=== PATIENT | female | born 1935 | race Caucasian/White ===

== ENCOUNTER 2017-11-18 12:17 | Inpatient (IN) | payer MEDICARE, OTHER ==
[~2017-11-18] VITALS: Ht 154.9 cm; Wt 49.4 kg
[~2017-11-18 12:17] MED LIST: ANTIDIARRHEAL2 MG PO; ATACAND16 MG PO; BISOPROLOL FUMAR5 MG PO; CITRACAL + D C1 EACH PO; DAILY VALUE1 EACH PO; LORTAB 7.5-5001 EACH PO; NEXIUM40 MG PO; TRAMADOL-ACETAMI1 EA PO; VITAMIN D22000 UNIT PO
[2017-11-18] MEDS ORDERED: ONDANSETRON HCL INJ 2 MG/ML VIAL IV SCH ×2 (12:59→16:45)
[2017-11-18] MEDS ORDERED: SODIUM CHLORIDE 0.9% 1000ML 1,000 ML IV STA (12:59)
[2017-11-18] MEDS ORDERED: METRONIDAZOLE 500MG/NS 100ML 100 ML IV STA (12:59)
[2017-11-18] MEDS ORDERED: PANTOPRAZOLE 40 MG 10ML VIAL IV SCH (12:59)
[2017-11-18] MEDS ORDERED: CIPROFLOXACIN 400 MG/D5W 200ML 200 ML IV ONE (13:00)
[2017-11-18] MEDS ORDERED: FENTANYL CITRATE/PF 100MCG/2 ML INJ IV ONE (13:00)
[2017-11-18] MEDS ORDERED: DIATRIZOATE MEGL/DIATRIZOA SOD 30 ML BTL PO ONE (13:16)
[2017-11-18 14:54] LABS: BASOPHILS # (AUTO) 0.1 (0.0-0.1); BASOPHILS % 0.5 % (0.0-1.0); EOSINOPHILS # (AUTO) 0.3 (0.0-0.4); EOSINOPHILS % 3.1 % (0.0-6.0); HEMATOCRIT 39.2 % (34.2-44.1); HEMOGLOBIN 12.9 g/dL (12.0-16.0); LYMPHOCYTES # (AUTO) 2.8 (1.0-3.2); MEAN CORPUSCULAR HEMOGLOBIN 28.9 pg (28-32); MEAN CORPUSCULAR HGB CONC 32.9 g/dL (31-35); MEAN CORPUSCULAR VOLUME 87.9 fL (81-99); MONOCYTES # (AUTO) 0.7 (0.2-0.8); MONOCYTES % 6.7 % (4.4-11.3); NEUTROPHILS # (AUTO) 6.9 (2.1-6.9); NEUTROPHILS % 63.5 % (38.7-80.0); PLATELET COUNT 259 x10e3/uL (140-360); RED BLOOD COUNT 4.46 x10e6/uL (3.6-5.1); RED CELL DISTRIBUTION WIDTH 14.9 % (11.7-14.4)
--- NOTE | 2017-11-18 15:01 | Diagnostic Imaging Report ---
EXAMINATION: CHEST SINGLE (PORTABLE) INDICATION: Bleeding from the rear COMPARISON: None FINDINGS: AP view TUBES and LINES: Left-sided ASCVD with 2 leads. LUNGS: Lungs are well inflated. Mild clearing of the lung parenchyma, likely emphysematous changes. Lungs are clear. There is no evidence of pneumonia or pulmonary edema. PLEURA: No pleural effusion or pneumothorax. HEART AND MEDIASTINUM: The cardiomediastinal silhouette is unremarkable. BONES AND SOFT TISSUES: No acute osseous lesion. Soft tissues are unremarkable. UPPER ABDOMEN: No free air under the diaphragm. Surgical clips in the right upper quadrant abdomen. IMPRESSION: No acute thoracic abnormality. Signed by: Dr. Tang Ward M.D. on 11/18/2017 2:57 PM
[2017-11-18 15:04] LABS: INR 1.01; PROTHROMBIN TIME 12.5 seconds (11.9-14.5)
[2017-11-18 15:13] LABS: ALANINE AMINOTRANSFERASE 19 IU/L (0-55); ALBUMIN 3.7 g/dL (3.5-5.0); ALBUMIN/GLOBULIN RATIO 1.2 (0.8-2.0); ALKALINE PHOSPHATASE 70 IU/L (40-150); ANION GAP 12.5 mmol/L (8-16); BLOOD UREA NITROGEN 19 mg/dL (7-26); BUN/CREATININE RATIO 20 (6-25); CALCIUM 10.1 mg/dL (8.4-10.2); CARBON DIOXIDE 31 mmol/L (22-29); CHLORIDE 101 mmol/L (98-107); CREATINE KINASE 122 IU/L (29-168); CREATININE, SERUM 0.97 mg/dL (0.57-1.11); EST GLOMERULAR FILTRATION RATE 55 ML/MIN (60-); GLUCOSE 103 mg/dL (74-118); LIPASE 14 U/L (8-78); MAGNESIUM 1.5 MG/DL (1.3-2.1); POTASSIUM 3.5 mmol/L (3.5-5.1); SODIUM 141 mmol/L (136-145)
[2017-11-18 15:33] LABS: THYROID STIMULATING HORMONE 2.306 uIU/mL (0.350-4.940)
[2017-11-18] MEDS: SODIUM CHLORIDE 0.9% 1000ML 1,000 ML IV SCH ×2 (16:00→23:04)
--- NOTE | 2017-11-18 16:24 | Diagnostic Imaging Report ---
EXAM: CT Abdomen and Pelvis WITH contrast INDICATION: \S\pain, rectal bleeding\S\Y COMPARISON: None. TECHNIQUE: Abdomen and pelvis were scanned utilizing a multidetector helical scanner from the lung base to the pubic symphysis after administration of IV contrast. Coronal and sagittal reformations were obtained. Routine protocol was performed. Scan was performed when during portal venous phase. IV CONTRAST: 100 mL of Isovue 370 ORAL CONTRAST: Gastrografin COMPLICATIONS: None RADIATION DOSE: Total DLP: 193.29 mGy*cm Estimated effective dose: (DLP x 0.015 x size factor) mSv CTDIvol has been reviewed. It is below the limits set by the Radiation Protocol Committee (RPC). FINDINGS: LINES and TUBES: None. LOWER THORAX: Unremarkable HEPATOBILIARY: No focal hepatic lesions. There is intra- and extra- hepatic biliary dilation likely post cholecystectomy resevoir effect. Common bile duct measures 0.8 cm. GALLBLADDER: There are cholecystectomy clips. SPLEEN: No splenomegaly. PANCREAS: No focal masses or ductal dilatation. ADRENALS: No adrenal nodules KIDNEYS/URETERS: Kidneys enhance symmetrically. No hydronephrosis. No cystic or solid mass lesions. No stones. GI TRACT: No abnormal distention, wall thickening, or evidence of bowel obstruction. Large amount of stool in the rectal lobe. There are diverticula within the colon without evidence of diverticulitis. Appendix is not clearly identified. There is however no fat stranding or adenopathy in the right lower quadrant to suggest appendicitis. PELVIC ORGANS/BLADDER: Unremarkable. LYMPH NODES: No lymphadenopathy. VESSELS: Unremarkable. PERITONEUM / RETROPERITONEUM: No free air or fluid. BONES: There are degenerative changes in the lumbar spine. Grade 1 anterolisthesis of L4 on L5. Moderate disc space narrowing at L1-L2. SOFT TISSUES: Unremarkable. IMPRESSION: 1. Large amount of stool in the rectal vault. 2. Colonic diverticula without evidence of diverticulitis. No bowel obstruction. Signed by: Dr. Tang Ward M.D. on 11/18/2017 4:20 PM
[2017-11-18] MEDS: METRONIDAZOLE 500MG/NS 100ML 100 ML IV SCH ×2 (16:26→23:58)
--- OUTSIDE RECORDS SUMMARY | 2017-11-18 16:36 | XMS REPORT ---
Author Author [facility] Address Unknown Phone Unavailable Care Team Providers Care Titrator Name Role Phone XIANG HU Unavailable Unavailable Problems This patient has no known problems. Allergies, Adverse Reactions, Alerts This patient has no known allergies or adverse reactions. Medications This patient has no known medications. Results Test Description Test Time Test Comments Text Results Atomic Results Result Comments CHEST SINGLE (PORTABLE) [facility] [address] [address] Patient Name: ADEN TORRES MR #: [id number] : 1935 Age/Sex: 82/F Req #: [id number] Adm Physician: Ordered by: XIANG HU MD, MD Report #: [id number] Location: ER Room/Bed: Procedure: [id number] DX/CHEST SINGLE (PORTABLE) Exam Date: 11/18/17 Exam Time: 1440 REPORT STATUS: Signed EXAMINATION : CHEST SINGLE (PORTABLE) INDICATION: Bleeding from the rear COMPARISON: None FINDINGS: AP view TUBES and LINES: Left- sided ASCVD with 2 leads. LUNGS: Lungs are well inflated. Mild clearing of the lung parenchyma, likely emphysematous changes. Lungs are clear. There is no evidence of pneumonia or pulmonary edema. PLEURA: No pleural effusion or pneumothorax. HEART AND MEDIASTINUM: The cardiomediastinal silhouette is unremarkable. BONES AND SOFT TISSUES: No acute osseous lesion. Soft tissues are unremarkable. UPPER ABDOMEN: No free air under the diaphragm. Surgical clips in the right upper quadrant abdomen. IMPRESSION: No acute thoracic abnormality. Signed by: Dr. Yazmin Ward M.D. on 11/18/2017 2:57 PM Dictated By: YAZMIN WARD MD 56 Transcribed By: MOIRA on 11/18/171456 COPY TO: XIANG HU CT ABDOMEN/PELVIS W [address] [place] [address] Patient Name: ADEN TORRES MR #: [id number] : 1935 Age/Sex: 82/F Req #: [id number] Adm Physician: Ordered by: XIANG HU MD, MD Report #: [id number] Location: ER Room/Bed: Procedure: [id number] CT/CT ABDOMEN/PELVIS W Exam Date: 11/18/17 Exam Time: 1530 REPORT STATUS: Signed EXAM: CT Abdomen and Pelvis WITH contrast INDICATION: S pain, rectal bleeding S Y COMPARISON: None. TECHNIQUE: Abdomen and pelvis were scanned utilizing a multidetector helical scanner from the lung base to the pubic symphysis after administration of IV contrast. Coronal and sagittal reformations were obtained. Routine protocol was performed. Scan was performed when during portal venous phase. IV CONTRAST: 100 mL of Isovue 370 ORAL CONTRAST: Gastrografin COMPLICATIONS: None RADIATION DOSE: Total DLP: 193.29 mGy*cm Estimated effective dose: (DLP x 0.015 x size factor) mSv CTDIvol has been reviewed. It is below the limits set by the Radiation Protocol Committee (RPC). FINDINGS: LINES and TUBES: None. LOWER THORAX: Unremarkable HEPATOBILIARY: No focal hepatic lesions. There is intra- and extra- hepatic biliary dilation likely post cholecystectomy resevoir effect. Common bile duct measures 0.8 cm. GALLBLADDER: There are cholecystectomy clips. SPLEEN: No splenomegaly. PANCREAS: No focal masses or ductal dilatation. ADRENALS: No adrenal nodules KIDNEYS/URETERS: Kidneys enhance symmetrically. No hydronephrosis. No cystic or solid mass lesions. No stones. GI TRACT: No abnormal distention, wall thickening, or evidence of bowel obstruction. Large amount of stool in the rectal lobe. There are diverticula within the colon without evidence of diverticulitis. Appendix is not clearly identified. There is however no fat stranding or adenopathy in the right lower quadrant to suggest appendicitis. PELVIC ORGANS/BLADDER: Unremarkable. LYMPH NODES: No lymphadenopathy. VESSELS: Unremarkable. PERITONEUM / RETROPERITONEUM: No free air or fluid. BONES: There are degenerative changes in the lumbar spine. Grade 1 anterolisthesis of L4 on L5. Moderate disc space narrowing at L1-L2. SOFT TISSUES: Unremarkable. IMPRESSION: 1. Large amount of stool in the rectal vault. 2. Colonic diverticula without evidence of diverticulitis. No bowel obstruction. Signed by: Dr. Yazmin Ward M.D. on 4:20 PM Dictated By: YAZMIN WARD MD 1620 Transcribed By: MOIRA on 11/18/17 1620 COPY TO : XIANG HU
[2017-11-18] MEDS ORDERED: FENTANYL CITRATE/PF 100MCG/2 ML INJ IV SCH (16:45)
[2017-11-18] MEDS: CIPROFLOXACIN 400 MG/D5W 200ML 200 ML IV SCH (17:00)
[2017-11-18 18:21] VITALS: BP 172/85
[2017-11-18 19:08] VITALS: BP 172/85
[2017-11-18 20:00] VITALS: BP 175/83
[2017-11-18 21:10] VITALS: BP 175/83
[2017-11-18] MEDS ORDERED: PEG (High)/E-LYTE SOLN 4,000 ML BTL PO ONE (23:30)
[2017-11-19] VITALS (7 sets, daily range): BP systolic 127–183; BP diastolic 56–81
[2017-11-19 00:49] LABS: HEMATOCRIT 35.6 % (34.2-44.1); HEMOGLOBIN 11.9 g/dL (12.0-16.0)
[2017-11-19] MEDS: CIPROFLOXACIN 400 MG/D5W 200ML 200 ML IV SCH ×2 (02:00→13:32)
[2017-11-19] MEDS: MORPHINE SULFATE 2 MG/ML SYR IV PRN (03:20)
[2017-11-19] MEDS: METRONIDAZOLE 500MG/NS 100ML 100 ML IV SCH ×4 (06:01→20:57)
[2017-11-19 06:57] LABS: HEMATOCRIT 34.7 % (34.2-44.1); HEMOGLOBIN 11.6 g/dL (12.0-16.0)
[2017-11-19 07:38] LABS: ALANINE AMINOTRANSFERASE 46 IU/L (0-55); ALBUMIN 3.1 g/dL (3.5-5.0); ALBUMIN/GLOBULIN RATIO 1.2 (0.8-2.0); ALKALINE PHOSPHATASE 117 IU/L (40-150); ANION GAP 13.2 mmol/L (8-16); BLOOD UREA NITROGEN 12 mg/dL (7-26); BUN/CREATININE RATIO 15 (6-25); CALCIUM 8.6 mg/dL (8.4-10.2); CARBON DIOXIDE 25 mmol/L (22-29); CHLORIDE 104 mmol/L (98-107); EST GLOMERULAR FILTRATION RATE > 60 ML/MIN (60-); GLUCOSE 124 mg/dL (74-118); POTASSIUM 3.2 mmol/L (3.5-5.1); SODIUM 139 mmol/L (136-145)
[2017-11-19] MEDS ORDERED: PANTOPRAZOLE 40 MG 10ML VIAL IV SCH (09:00)
[2017-11-19] MEDS: SODIUM CHLORIDE 0.9% 1000ML 1,000 ML IV SCH (09:21)
[2017-11-19] MEDS ORDERED: CITRATE OF MAGNESIA 300ML BOTTLE PO SCH ×2 (09:45→12:00)
[2017-11-19] MEDS ORDERED: POTASSIUM CHLORIDE 20MEQ/100ML 300 ML IV ONE (12:00)
[2017-11-19] MEDS: POTASSIUM CHLORIDE 20MEQ/100ML 100 ML IV SCH ×3 (13:10→17:41)
[2017-11-20] VITALS (7 sets, daily range): BP systolic 134–183; BP diastolic 59–83
[2017-11-20] MEDS: SODIUM CHLORIDE 0.9% 1000ML 1,000 ML IV SCH ×3 (00:15→18:01)
[2017-11-20] MEDS: CIPROFLOXACIN 400 MG/D5W 200ML 200 ML IV SCH (01:15)
[2017-11-20] MEDS: METRONIDAZOLE 500MG/NS 100ML 100 ML IV SCH ×3 (05:06→22:19)
[2017-11-20] MEDS ORDERED: CIPROFLOXACIN 400 MG/D5W 200ML 200 ML IV SCH (06:30)
[2017-11-20 07:20] LABS: BASOPHILS % 0.6 % (0.0-1.0); EOSINOPHILS # (AUTO) 0.3 (0.0-0.4); HEMATOCRIT 32.5 % (34.2-44.1); HEMOGLOBIN 10.8 g/dL (12.0-16.0); LYMPHOCYTES % 31.7 % (18.0-39.1); MEAN CORPUSCULAR HEMOGLOBIN 29.7 pg (28-32); MEAN CORPUSCULAR HGB CONC 33.2 g/dL (31-35); MEAN CORPUSCULAR VOLUME 89.3 fL (81-99); MONOCYTES # (AUTO) 0.5 (0.2-0.8); MONOCYTES % 7.7 % (4.4-11.3); NEUTROPHILS # (AUTO) 3.5 (2.1-6.9); NEUTROPHILS % 55.8 % (38.7-80.0); PLATELET COUNT 162 x10e3/uL (140-360); RED BLOOD COUNT 3.64 x10e6/uL (3.6-5.1); RED CELL DISTRIBUTION WIDTH 14.9 % (11.7-14.4)
[2017-11-20 07:31] LABS: ALBUMIN 2.8 g/dL (3.5-5.0); BILIRUBIN,DIRECT 0.4 mg/dL (0.0-0.5)
[2017-11-20] MEDS: HYDRALAZINE HCL 20 MG/ML VIAL IV PRN ×2 (07:44→23:06)
[2017-11-20 07:52] LABS: ANION GAP 12.3 mmol/L (8-16); BLOOD UREA NITROGEN 8 mg/dL (7-26); BUN/CREATININE RATIO 10 (6-25); CALCIUM 8.5 mg/dL (8.4-10.2); CARBON DIOXIDE 21 mmol/L (22-29); CHLORIDE 111 mmol/L (98-107); CREATININE, SERUM 0.78 mg/dL (0.57-1.11); EST GLOMERULAR FILTRATION RATE > 60 ML/MIN (60-); GLUCOSE 100 mg/dL (74-118); MAGNESIUM 1.7 MG/DL (1.3-2.1); POTASSIUM 3.3 mmol/L (3.5-5.1); SODIUM 141 mmol/L (136-145)
[2017-11-20] MEDS: FAMOTIDINE 10MG/ML 20ML VIAL IV SCH (08:19)
[2017-11-20] MEDS ORDERED: FAMOTIDINE 20 MG/2 ML VIAL IV SCH (09:00)
--- NOTE | 2017-11-20 15:38 | Operative Report ---
DATE OF PROCEDURE: November 20, 2017 REFERRING PHYSICIAN: Dr. Chu Cantu PROCEDURE PERFORMED: Colonoscopy and polypectomy. INDICATIONS FOR COLONOSCOPY: Rectal bleeding. MEDICATION: Patient was done under MAC. Please see anesthesiologist's note. PROCEDURE: With the patient in the left lateral decubitus position, the flexible fiberoptic Olympus colonoscope was inserted into the rectum with ease and advanced all the way to the cecum. Mucosa overlying the cecum, ascending colon and transverse colon grossly appeared to be within normal limits. Diverticular disease was noted to involve the descending and the sigmoid colon. Focal diverticulitis was noted in the sigmoid colon. One polyp was hot biopsied from the sigmoid. The scope could not be retroflexed in the distal rectum as the size of the rectum was small. The scope was subsequently withdrawn. Patient tolerated the procedure well. IMPRESSION 1. Diverticulosis. 2. Focal diverticulitis, sigmoid colon. 3. Sigmoid colon polyp, hot biopsied. PLAN: Follow up histology. Initiate GI soft diet. No followup colonoscopy is necessary. Job#: [id number] RI cc: CHU CANTU M.D.
[2017-11-20] MEDS ORDERED: PROPOFOL IV EMULSION 10 MG/ML 50 ML VIAL ONE (17:16)
[2017-11-20] MEDS ORDERED: FENTANYL CITRATE/PF 100MCG/2 ML INJ ONE (17:32)
[2017-11-20] MEDS ORDERED: MIDAZOLAM HCL 2 MG/2 ML VIAL ONE (17:32)
[2017-11-20] MEDS ORDERED: LEVOFLOXACIN 250MG/D5W 50ML 50 ML IV SCH (18:00)
[2017-11-20] MEDS: MORPHINE SULFATE 2 MG/ML SYR IV PRN (23:30)
[2017-11-20] MEDS ORDERED: METOPROLOL TARTRATE 25 MG TAB PO ONE (23:30)
[2017-11-21] VITALS (7 sets, daily range): BP systolic 134–172; BP diastolic 60–79
[2017-11-21] MEDS: METRONIDAZOLE 500 MG TAB PO SCH (00:40)
[2017-11-21] MEDS ORDERED: ONDANSETRON HCL INJ 2 MG/ML VIAL IV PRN (01:30)
[2017-11-21] MEDS: SODIUM CHLORIDE 0.9% 1000ML 1,000 ML IV SCH (02:19)
[2017-11-21] MEDS: METRONIDAZOLE 500MG/NS 100ML 100 ML IV SCH ×2 (02:19→05:36)
[2017-11-21 07:48] LABS: BILIRUBIN,URINE NEGATIVE (NEGATIVE); CLARITY,URINE CLEAR (CLEAR); COLOR,URINE YELLOW (YELLOW); KETONES,URINE 3+ (NEGATIVE); LEUKOCYTE ESTERASE ,URINE 1+ (NEGATIVE); NITRITE,URINE NEGATIVE (NEGATIVE); PROTEIN,URINE DIPSTICK NEGATIVE (NEGATIVE); URINE UROBILINOGEN 0.2 mg/dL (0.2 - 1)
[2017-11-21 07:55] LABS: CREATINE KINASE MB 2.8 ng/mL (0-5.0)
[2017-11-21 08:00] LABS: EPITHELIAL CELLS,URINE FEW /LPF
[2017-11-21 08:02] LABS: BACTERIA,URINE RARE /HPF
[2017-11-21] MEDS ORDERED: NEBIVOLOL 10 MG TAB PO SCH (09:00)
[2017-11-21] MEDS ORDERED: METOPROLOL TARTRATE 25 MG TAB PO SCH (09:00)
[2017-11-21] MEDS ORDERED: NON-FORMULARY MEDICATION (Bisoprolol Fumarate 5 MG) PO SCH (09:00)
[2017-11-21] MEDS: FAMOTIDINE 10MG/ML 20ML VIAL IV SCH (09:07)
[2017-11-21] MEDS: BISOPROLOL FUMARATE 10 MG TAB PO SCH (09:09)
[2017-11-21] MEDS ORDERED: POTASSIUM CHLORIDE 20 MEQ TAB CR PO STA (15:15)
[2017-11-21 16:19] LABS: CREATINE KINASE MB 3.6 ng/mL (0-5.0)
[2017-11-21] MEDS: LEVOFLOXACIN 500 MG TAB PO SCH (17:11)
[2017-11-22] VITALS (7 sets, daily range): BP systolic 134–198; BP diastolic 61–91
[2017-11-22] MEDS: METRONIDAZOLE 500 MG TAB PO SCH ×3 (06:00→21:17)
[2017-11-22 07:27] LABS: BASOPHILS # (AUTO) 0.1 (0.0-0.1); BASOPHILS % 0.6 % (0.0-1.0); EOSINOPHILS # (AUTO) 0.3 (0.0-0.4); EOSINOPHILS % 3.9 % (0.0-6.0); HEMATOCRIT 35.6 % (34.2-44.1); HEMOGLOBIN 11.8 g/dL (12.0-16.0); LYMPHOCYTES # (AUTO) 2.2 (1.0-3.2); LYMPHOCYTES % 27.3 % (18.0-39.1); MEAN CORPUSCULAR HEMOGLOBIN 28.6 pg (28-32); MEAN CORPUSCULAR HGB CONC 33.1 g/dL (31-35); MEAN CORPUSCULAR VOLUME 86.4 fL (81-99); MONOCYTES # (AUTO) 0.7 (0.2-0.8); MONOCYTES % 8.2 % (4.4-11.3); NEUTROPHILS # (AUTO) 4.7 (2.1-6.9); NEUTROPHILS % 59.9 % (38.7-80.0); PLATELET COUNT 192 x10e3/uL (140-360); RED BLOOD COUNT 4.12 x10e6/uL (3.6-5.1); RED CELL DISTRIBUTION WIDTH 15.1 % (11.7-14.4)
[2017-11-22 07:59] LABS: ANION GAP 11.6 mmol/L (8-16); BLOOD UREA NITROGEN 9 mg/dL (7-26); BUN/CREATININE RATIO 12 (6-25); CALCIUM 8.9 mg/dL (8.4-10.2); CARBON DIOXIDE 24 mmol/L (22-29); CHLORIDE 106 mmol/L (98-107); CREATININE, SERUM 0.75 mg/dL (0.57-1.11); EST GLOMERULAR FILTRATION RATE > 60 ML/MIN (60-); GLUCOSE 98 mg/dL (74-118); MAGNESIUM 1.3 MG/DL (1.3-2.1); POTASSIUM 3.6 mmol/L (3.5-5.1); SODIUM 138 mmol/L (136-145)
[2017-11-22 08:24] LABS: CREATINE KINASE MB 3.1 ng/mL (0-5.0)
[2017-11-22] MEDS ORDERED: ZIPRASIDONE 20 MG VIAL IM ONE (08:30)
[2017-11-22] MEDS: BISOPROLOL FUMARATE 10 MG TAB PO SCH ×2 (09:00→13:46)
[2017-11-22] MEDS ORDERED: METOPROLOL TARTRATE INJ 1 MG/ML VIAL IV ONE (13:10)
[2017-11-22] MEDS: VALSARTAN 80 MG TAB PO SCH ×2 (13:44→21:17)
[2017-11-22] MEDS: LEVOFLOXACIN 500 MG TAB PO SCH (13:46)
--- NOTE | 2017-11-22 14:20 | Diagnostic Imaging Report ---
PROCEDURE:X-RAY ABDOMEN - KUB COMPARISON:CT abdomen and pelvis 11/18/2017. INDICATIONS:DIVERTICULITIS FINDINGS: The bowel gas pattern shows no dilated, air-filled loops of bowel. Gas and fecal material is noted throughout the colon. No abnormal abdominal calcification, mass effect, or organomegaly. Scoliotic curvature of the lumbar spine with associated degenerative disc changes. No acute osseous abnormality. CONCLUSION: Nonobstructive bowel gas pattern. Dictated by: Sushil Barroso M.D. on 11/22/2017 at 14:20 Electronically approved by: Sushil Barroso M.D. on 11/22/2017 at 14:20
--- NOTE | 2017-11-22 14:34 | Consultation ---
DATE OF CONSULTATION: November 22, 2017 CARDIOLOGY CONSULTATION REASON FOR CONSULTATION: Elevated troponin. HISTORY OF PRESENT ILLNESS: Ms. Mejia is an 82-year-old lady with a past medical history of hypertension, rheumatoid arthritis, irritable bowel syndrome, GERD, history of hypertrophic subaortic stenosis (IHSS) with pacemaker defibrillator placed in [place] many, many years ago due to prior history of malignant arrhythmias, according to family. The patient does report that her generator was recently changed within the past year or so. She was in her usual state of health up until a couple of days prior to admission and was having issues with loose stools and came in with briana rectal bleeding and was diagnosed with a lower GI bleed in addition to cramping and lower quadrant abdominal pain. She underwent colonoscopy with Dr. Marlow, which ultimately showed the presence of diverticulosis with acute diverticulitis in the sigmoid region. She has been receiving IV levofloxacin and Flagyl for her diverticulitis, sepsis, and abdominal pain and became progressively confused last night and has persisted into today. Upon my visit with the patient today, she reports that she just does not know where she is and does not know what is going on. Earlier, she was agitated, and she received a dose of Geodon. Currently, the patient denies any chest pain or discomfort. She denies any shortness of breath, just feels straight up confused and reports that her stomach hurts. She has not had any bowel movements for the past 24 hours, and the last bowel movement was noted to be brown and nonbloody. I had a long discussion with the patient as well as her 2 daughters to help get some more history. At baseline, the patient lives by herself. At times, she shows signs of some mild cognitive impairment, but is rather functional at baseline. PAST MEDICAL HISTORY 1. Hypertension. 2. Rheumatoid arthritis. 3. Irritable bowel syndrome. 4. GERD. 5. Idiopathic hypertrophic subaortic stenosis (IHSS), hypertrophic cardiomyopathy, status post dual-chamber ICD implantation for malignant arrhythmias. PAST SURGICAL HISTORY 1. History of cholecystectomy in 1977. 2. History of appendectomy in 1973. 3. History of total hysterectomy. 4. History of lumbar spinal surgery for stenosis and severe peripheral neuropathy. FAMILY HISTORY: Mother at the age of 94, had rheumatoid arthritis and had atrial fibrillation. Father in his 80s with complications of diabetes. SOCIAL HISTORY: She is a former smoker, smoked for about 22 years of her life, quit in the late 1980s. No alcohol or illicit drug use. ALLERGIES: CODEINE. MEDICATIONS: Include: 1. Bisoprolol 5 mg daily. 2. Candesartan 60 mg b.i.d. 3. Calcium with vitamin D supplementation 1 tablet daily. 4. Nexium 40 mg daily. 5. Lortab p.r.n. 6. Multivitamin 1 tablet daily. 7. Loperamide p.r.n. REVIEW OF SYSTEMS: Unable to be adequately obtained secondary to her confusion and mental status, but she denies any chest pain or any discomfort, with the only complaint of stomach pain. PHYSICAL EXAMINATION VITALS: Height 61 inches, weight 118 pounds, BMI 22.3. Temperature 98.3, pulse 89, respiratory rate 22, blood pressure 184/75, and 97% on room air. GENERAL: This is a frail lady, who is currently confused but, otherwise, in no apparent distress. HEENT: Normocephalic and atraumatic. The extraocular movements are intact. Oropharynx is clear. NECK: There is no elevation of jugular venous pulsation. There is faint suspected transmitted murmur. Noise in the bilateral carotids. CARDIOVASCULAR: A 2/6 systolic ejection murmur at the right upper sternal border. LUNGS: Relatively clear to auscultation bilaterally with fair air entry. ABDOMEN: Diffusely tender to palpation, particularly in the left-sided region and with hypoactive bowel sounds. BACK: No costovertebral angle tenderness. EXTREMITIES: Warm. There is no notable edema. NEUROLOGIC: Limited exam secondary to lack of cooperation, but essentially she is alert and oriented x1. She is able to support her weight and moves all 4 extremities. LABS: Reviewed from the computer. Current white count at 7.9, hemoglobin 11.8, hematocrit 35.6, platelets 192. Sodium 138, potassium 3.6, chloride 106, bicarb 24, BUN 9, creatinine 0.75, glucose 98. AST 44, ALT 34, alk phos 92, total bili 1.2, total protein 5.0, albumin 2.8. UA shows 6-10 white cells, Fecal occult blood test is positive. Troponin went from 0.118 to 0.345 to 0.157. CK and MB are strongly negative. EKG which was done right now reveals sinus rhythm, normal axis, and no ST-T-wave changes concerning for ischemia. DIAGNOSES 1. Acute delirium secondary to diverticulitis and sepsis. 2. Diverticulitis as evident on colonoscopy. 3. Troponin elevation secondary to demand leak from idiopathic hypertrophic subaortic stenosis plus hypertension. 4. Status post dual-chamber pacemaker defibrillator. 5. Idiopathic hypertrophic subaortic stenosis/hypertrophic cardiomyopathy. 6. History of malignant arrhythmias per family. 7. Rheumatoid arthritis. PLAN/RECOMMENDATIONS 1. From a cardiovascular standpoint, treatment is largely going to be supportive. We have reinitiated her beta silvia therapy and have given her some IV metoprolol for now. 2. We will restart her ARB therapy. 3. Will check an echocardiogram to establish left ventricular baseline function. 4. Patient does have a dual-chamber pacemaker defibrillator which will prevent any significant bradyarrhythmias, so we can be aggressive with [id number]-oilqytbp agents. 5. Will check upright KUB to see if there is any presence of free air under the diaphragm. 6. Agree with antibiotic and diverticulitis therapy per GI recommendations and primary service. 7. We will continue to follow this patient with you. 8. This was a very long discussion with both of her family members and reviewing history. Over 50 minutes of care devoted with this patient. Job#: [id number] AMANDA
[2017-11-22] MEDS ORDERED: ZIPRASIDONE 20 MG VIAL IM PRN (17:45)
[2017-11-22] MEDS: NIFEDIPINE CR 30 MG TAB PO SCH (18:45)
[2017-11-22] MEDS ORDERED: OLANZAPINE 5 MG TAB PO PRN (19:15)
[2017-11-22] MEDS ORDERED: HALOPERIDOL LACTATE 5 MG/ML VIAL IM PRN (19:15)
[2017-11-23] VITALS: BP 131/63
--- NOTE | 2017-11-23 02:41 | Consultation ---
DATE OF CONSULTATION: November 22, 2017 PSYCHIATRIC CONSULTATION REASON FOR CONSULTATION: To evaluate patient's paranoia and confusion. HISTORY OF PRESENT ILLNESS: The patient is 82-year-old female admitted to the hospital for abdominal pain and lower GI bleed. Psychiatric consultation is called to evaluate patient's psychosis. As per medical record, patient has history of hypertension, rheumatoid arthritis, IBS, GERD, hypertrophic subaortic stenosis. She has a defibrillator. Patient underwent colonoscopy, but after that she became more confused. Before assessment, nursing staff reported that patient was agitated earlier this morning. She is receiving Geodon p.r.n. IM 1 time dose. She was confused, running around the hallway, thought people were after her. She was not redirectable. Patient is lying on the bed at the time of assessment. Patient is sleeping, but easily arousable. She is confused. She thinks she is at home. She does not know where she is and does not know the current year. Patient does not remember anything that happened previously. She denies any depression or anxiety. She denies any hallucinations. She does not elicit paranoia at this time. She denies any problem with sleep or appetite. PAST PSYCHIATRIC HISTORY: Patient denies any past psychiatric history. She denies past suicide attempts. She denies alcohol and drug use. FAMILY HISTORY: Patient denies. SOCIAL HISTORY: Patient is unable to provide information due to confusion. MENTAL STATUS EXAMINATION: The patient is an elderly female. She is alert, awake, but confused and is oriented to self only. She is calm at this time. Mood is anxious. Thought process is loose. She does not elicit paranoia or delusional thinking. She denies any suicidal or homicidal ideation. She denies any hallucinations. Insight and judgment are limited to impaired. Memory is grossly impaired. CURRENT MEDICATIONS: 1. Levofloxacin. 2. Bisoprolol. 3. Losartan. 4. Metronidazole. 5. Ondansetron. 6. Geodon 10 mg IM nightly p.r.n. 7. Nifedipine. CURRENT LABS: Sodium 138, potassium 3.6, chloride 106, BUN 9, creatinine 0.75. AST 44, ALT 34. WBC is 7.88, RBC is 4.12, hemoglobin 11.8, hematocrit 35.6, platelets is 192,000. ASSESSMENT: Unspecified psychosis/delirium, multifactorial, rule out dementia. PLAN: 1. To discontinue Geodon. 2. Add Haldol 2 mg IM q.6h. p.r.n. 3. Add Zyprexa 2.5 mg p.o. q.6h. p.r.n. 4. Monitor for agitation. Thank you for this consultation. Dictated by SUDHEER Pan Job#: [id number]
[2017-11-23 04:00] VITALS: BP 140/68
[2017-11-23] MEDS: METRONIDAZOLE 500 MG TAB PO SCH ×3 (06:53→22:09)
[2017-11-23 08:00] VITALS: BP 135/61
[2017-11-23] MEDS ORDERED: NIFEDIPINE CR 30 MG TAB PO SCH (09:00)
[2017-11-23] MEDS: BISOPROLOL FUMARATE 10 MG TAB PO SCH (10:08)
[2017-11-23] MEDS: VALSARTAN 80 MG TAB PO SCH ×2 (10:09→21:00)
[2017-11-23] MEDS: NIFEDIPINE CR 30 MG TAB PO SCH ×2 (10:09→17:32)
[2017-11-23 12:00] VITALS: BP_SYST 146; BP_SYST 162; BP_DIAS 65; BP_DIAS 85
[2017-11-23] MEDS: LEVOFLOXACIN 500 MG TAB PO SCH (13:31)
[2017-11-23 16:11] VITALS: BP 136/65
[2017-11-23 20:00] VITALS: BP 115/54
[2017-11-24] VITALS (8 sets, daily range): BP systolic 115–140; BP diastolic 54–64
[2017-11-24] MEDS: METRONIDAZOLE 500 MG TAB PO SCH ×3 (06:42→20:56)
[2017-11-24 07:49] LABS: BASOPHILS # (AUTO) 0.1 (0.0-0.1); BASOPHILS % 0.4 % (0.0-1.0); EOSINOPHILS % 0.2 % (0.0-6.0); HEMATOCRIT 41.4 % (34.2-44.1); HEMOGLOBIN 13.9 g/dL (12.0-16.0); LYMPHOCYTES # (AUTO) 3.4 (1.0-3.2); MEAN CORPUSCULAR HEMOGLOBIN 29.5 pg (28-32); MEAN CORPUSCULAR HGB CONC 33.6 g/dL (31-35); MEAN CORPUSCULAR VOLUME 87.9 fL (81-99); MONOCYTES # (AUTO) 1.4 (0.2-0.8); MONOCYTES % 9.3 % (4.4-11.3); NEUTROPHILS # (AUTO) 9.6 (2.1-6.9); PLATELET COUNT 273 x10e3/uL (140-360); RED BLOOD COUNT 4.71 x10e6/uL (3.6-5.1); RED CELL DISTRIBUTION WIDTH 15.2 % (11.7-14.4)
[2017-11-24 08:16] LABS: ALANINE AMINOTRANSFERASE 16 IU/L (0-55); ALBUMIN 3.3 g/dL (3.5-5.0); ALKALINE PHOSPHATASE 72 IU/L (40-150); ANION GAP 14.3 mmol/L (8-16); BLOOD UREA NITROGEN 19 mg/dL (7-26); BUN/CREATININE RATIO 23 (6-25); CALCIUM 9.7 mg/dL (8.4-10.2); CARBON DIOXIDE 27 mmol/L (22-29); CHLORIDE 100 mmol/L (98-107); CREATININE, SERUM 0.84 mg/dL (0.57-1.11); EST GLOMERULAR FILTRATION RATE > 60 ML/MIN (60-); GLUCOSE 126 mg/dL (74-118); POTASSIUM 3.3 mmol/L (3.5-5.1); SODIUM 138 mmol/L (136-145)
[2017-11-24] MEDS: NIFEDIPINE CR 30 MG TAB PO SCH ×2 (08:47→17:09)
[2017-11-24] MEDS: BISOPROLOL FUMARATE 10 MG TAB PO SCH (08:47)
[2017-11-24] MEDS: VALSARTAN 80 MG TAB PO SCH ×2 (08:47→20:56)
[2017-11-24] MEDS ORDERED: POTASSIUM CHLORIDE 20 MEQ TAB CR PO ONE (10:15)
[2017-11-24] MEDS ORDERED: SODIUM CHLORIDE 0.9% 1000ML 1,000 ML IV SCH (13:00)
[2017-11-24] MEDS: LEVOFLOXACIN 500 MG TAB PO SCH (14:46)
[2017-11-24] MEDS ORDERED: DIATRIZOATE MEGL/DIATRIZOA SOD 30 ML BTL PO ONE (15:33)
--- NOTE | 2017-11-24 15:57 | Diagnostic Imaging Report ---
PROCEDURE: A single AP view of the chest. COMPARISON: None. INDICATIONS: LOWER ABDOMINAL PAIN FINDINGS: Lines/tubes: Dual-lead AICD with lead tips overlying the right atrium and right ventricle. Lungs: The lungs are well inflated and clear. There is no evidence of pneumonia or pulmonary edema. Pleura: There is no pleural effusion or pneumothorax. Heart and mediastinum: The heart and the mediastinum are unremarkable. Bones/soft tissues: No acute bony abnormality. A1.4 cm oval lobulated calcification projects over the right axilla. Upper abdomen: Surgical clips project over the right upper quadrant. No free air under the diaphragm. IMPRESSION: No acute cardiopulmonary disease. Dictated by: Serge Wan M.D. on 11/24/2017 at 15:58 Electronically approved by: Serge Wan M.D. on 11/24/2017 at 15:58
--- NOTE | 2017-11-24 17:52 | Diagnostic Imaging Report ---
PROCEDURE: CT ABDOMEN AND PELVIS WITH CONTRAST TECHNIQUE: The abdomen and pelvis were scanned utilizing a multidetector helical scanner from the diaphragm to the lesser trochanter after the IV administration of 100 cc of Isovue 370 and the oral administration of 900 cc of Gastrografin/Water. Coronal and sagittal multiplanar reformations were obtained. DLP: 252.34 mGy-cm COMPARISON: CT 11/18/2017. INDICATIONS: RECTAL BLEEDING FINDINGS: LOWER THORAX: Partially visualized AICD leads in the right atrium and right ventricle. HEPATOBILIARY: No focal hepatic lesions. There is intra- and extrahepatic biliary dilation likely post cholecystectomy reservoir effect. Common bile duct measures 0.8 cm. There are cholecystectomy clips. SPLEEN: No splenomegaly. PANCREAS: No focal masses or ductal dilatation. ADRENALS: No adrenal nodules. KIDNEYS/URETERS: No hydronephrosis, stones, or solid mass lesions. Right superior pole 0.6 cm hypodensity, too small to characterize but likely a cyst. PELVIC ORGANS/BLADDER: Unremarkable. PERITONEUM / RETROPERITONEUM: No free air or fluid. LYMPH NODES: No lymphadenopathy. VESSELS: Moderate atherosclerotic disease. GI TRACT: No abnormal distention, wall thickening, or evidence of bowel obstruction. Previous fecal ball in the rectum is no longer visualized. There are diverticula within the colon without evidence of diverticulitis. Liquid contents within the colon may reflect diarrhea or laxatives. Appendix is not clearly identified. There is however no fat stranding or adenopathy in the right lower quadrant to suggest appendicitis. BONES AND SOFT TISSUES: There are degenerative changes in the lumbar spine. Grade 1 anterolisthesis of L4 on L5. Moderate disc space narrowing at L1-L2. IMPRESSION: 1. Liquid contents within the colon without colonic wall thickening may reflect diarrhea or be related to laxatives given passage of the previous large amount of rectal stool. 2. Otherwise, no acute abnormalities in the abdomen and pelvis. 3. Colonic diverticulosis. Dictated by: Serge Wan M.D. on 11/24/2017 at 17:52 Electronically approved by: Serge Wan M.D. on 11/24/2017 at 17:52
[2017-11-24] MEDS ORDERED: IOPAMIDOL 370 MG/ML 200 ML INFUS..BTL INJ ONE (18:54)
[2017-11-24] MEDS ORDERED: SODIUM CHLORIDE 0.9% 50ML 50 ML ONE (18:54)
[2017-11-24 19:10] LABS: BILIRUBIN,URINE NEGATIVE (NEGATIVE); COLOR,URINE AMBER (YELLOW); KETONES,URINE 2+ (NEGATIVE); LEUKOCYTE ESTERASE ,URINE TRACE (NEGATIVE); URINE UROBILINOGEN 0.2 mg/dL (0.2 - 1)
[2017-11-24 19:11] LABS: CLARITY,URINE SL CLOUDY (CLEAR); NITRITE,URINE POSITIVE (NEGATIVE); PROTEIN,URINE DIPSTICK 1+ (NEGATIVE)
[2017-11-24 19:40] LABS: EPITHELIAL CELLS,URINE MODERATE /LPF; WBC,URINE (MAN) 0-5 /HPF (0-5)
[2017-11-25] VITALS: BP 105/51
[2017-11-25 04:00] VITALS: BP 121/56
[2017-11-25] MEDS: METRONIDAZOLE 500 MG TAB PO SCH ×2 (07:09→12:38)
[2017-11-25 08:02] LABS: BASOPHILS % 0.2 % (0.0-1.0); EOSINOPHILS % 0.3 % (0.0-6.0); HEMATOCRIT 37.3 % (34.2-44.1); HEMOGLOBIN 12.3 g/dL (12.0-16.0); LYMPHOCYTES # (AUTO) 2.9 (1.0-3.2); LYMPHOCYTES % 21.7 % (18.0-39.1); MEAN CORPUSCULAR HEMOGLOBIN 28.9 pg (28-32); MEAN CORPUSCULAR VOLUME 87.6 fL (81-99); MONOCYTES # (AUTO) 1.1 (0.2-0.8); NEUTROPHILS # (AUTO) 9.3 (2.1-6.9); NEUTROPHILS % 69.4 % (38.7-80.0); PLATELET COUNT 254 x10e3/uL (140-360); RED BLOOD COUNT 4.26 x10e6/uL (3.6-5.1); RED CELL DISTRIBUTION WIDTH 15.5 % (11.7-14.4)
[2017-11-25 08:30] LABS: ALANINE AMINOTRANSFERASE 12 IU/L (0-55); ALBUMIN 2.9 g/dL (3.5-5.0); ALKALINE PHOSPHATASE 66 IU/L (40-150); ANION GAP 13.8 mmol/L (8-16); BILIRUBIN,DIRECT 0.4 mg/dL (0.0-0.5); BLOOD UREA NITROGEN 22 mg/dL (7-26); BUN/CREATININE RATIO 29 (6-25); CALCIUM 9.3 mg/dL (8.4-10.2); CARBON DIOXIDE 26 mmol/L (22-29); CHLORIDE 103 mmol/L (98-107); CREATININE, SERUM 0.75 mg/dL (0.57-1.11); EST GLOMERULAR FILTRATION RATE > 60 ML/MIN (60-); GLUCOSE 97 mg/dL (74-118); MAGNESIUM 1.4 MG/DL (1.3-2.1); POTASSIUM 3.8 mmol/L (3.5-5.1); SODIUM 139 mmol/L (136-145)
[2017-11-25] MEDS: VALSARTAN 80 MG TAB PO SCH (08:32)
[2017-11-25] MEDS: NIFEDIPINE CR 30 MG TAB PO SCH (08:32)
[2017-11-25] MEDS: BISOPROLOL FUMARATE 10 MG TAB PO SCH (08:32)
[2017-11-25 08:36] VITALS: BP 143/65
[2017-11-25 09:24] VITALS: BP 143/65
[2017-11-25 12:12] VITALS: BP 133/60
[2017-11-25] MEDS ORDERED: LEVAQUIN500 MG PO (12:26)
[2017-11-25] MEDS ORDERED: FLAGYL500 MG PO (12:26)
--- NOTE | 2017-11-25 13:27 | Discharge Summary ---
PRIMARY DIAGNOSES 1. Gastrointestinal bleed, acute. 2. Acute diverticulitis, sigmoid colon. SECONDARY DIAGNOSES 1. Diverticulosis, sigmoid colonic polyp, status post biopsy. 2. Hypertension. 3. Rheumatoid arthritis. 4. Irritable bowel syndrome. 5. Gastroesophageal reflux disease. 6. Idiopathic hypertrophic subaortic stenosis. 7. History of malignant arrhythmias with dual-chamber implantable-cardioverter defibrillator. 8. Acute delirium, resolved. 9. Troponin elevation secondary to demand leak from idiopathic hypertrophic subaortic stenosis condition. HOSPITAL COURSE: Mrs. Mejia was admitted. Patient experienced rectal bleeding for 2 weeks. Patient had ER evaluation here at [facility]. The hemoglobin was 11.6 and hematocrit was 34.7. For the most part, it did not fall below that. Patient went for colonoscopy where findings suggestive of focal diverticulitis in sigmoid colon were found. There was also sigmoid colon polyp that was hot biopsied. Patient had serial evaluation, was noted to be stable from a hematologic point of view. On discharge, white blood count was 13,000, but patient was looking very well and was asymptomatic. No further bleeding. Patient was really wanting to go home and discharged, and she demanded that. Family had some hesitation and was preferring long-term facility, but we are asking them to reconcile their considerations noting that the patient strongly prefers to go home. Other tests noted that urine culture was unremarkable and urinalysis had 6-10 white cells. Chest x-ray was clear. Oxygen saturation 96% on room air at discharge. FOLLOWUP: Patient to go back to Dr. Cloud at [facility] and to see follow up for the GI pathology. DIET: GI diet at discharge. ACTIVITIES: Patient was seen here ambulating independently without a walker and she was recommended to ambulate as safe and as tolerated. MEDICATIONS AT DISCHARGE: Please see discharge medicine reconciliation for details. Greater than 30 minutes spent on this discharge. I am covering for Dr. Jet Phillips. Job#: [id number] SHARON
[2017-11-25] MEDS: LEVOFLOXACIN 500 MG TAB PO SCH (13:59)
== END 2017-11-25 14:26 | disposition home health service (06) | DRG 378 ==
LOC: ER 12:17 → ERHOLD 13:04 → IMCU 17:01 → OBSVTOIN 11-21 11:20 → MED/SURG 11-21 20:03
PROVIDERS: ADMIT Internal Medicine; ATTEND Internal Medicine
PROC: 0DBN8ZX Excision of Sigmoid Colon, Via Natural or Artificial Opening Endoscopic, Diagnostic (ICD-10-PCS; principal; 2017-11-20 12:00)
DX: K57.33 Diverticulitis of large intestine without perforation or abscess with bleeding (principal); I42.1 Obstructive hypertrophic cardiomyopathy; I24.8 Other forms of acute ischemic heart disease; F23 Brief psychotic disorder; D12.5 Benign neoplasm of sigmoid colon; Z95.810 Presence of automatic (implantable) cardiac defibrillator; M06.9 Rheumatoid arthritis, unspecified; I10 Essential (primary) hypertension; K21.9 Gastro-esophageal reflux disease without esophagitis; Z87.891 Personal history of nicotine dependence; E87.6 Hypokalemia; D72.829 Elevated white blood cell count, unspecified; T46.5X5A Adverse effect of other antihypertensive drugs, initial encounter; Y92.230 Patient room in hospital as the place of occurrence of the external cause
CPT/HCPCS: 36415; 45384; 71045; 74018; 74177; 80048; 80053; 80076; 81001; 82270; 82550; 82553; 83690; 83735; 83880; 84443; 84484; 85014; 85018; 85025; 85610; 85730; 86850; 86900; 87086; 88305; 93005; 93306; 93880; 99284; G0378; J0360; J1956; J2250; J2270; J2405; J3480; J3486; J7030; Q9967